=== PATIENT | male | born 1945 | race Two or more races ===

== ENCOUNTER 2017-11-29 07:13 | Day surgery (SDC) | payer OTHER ==
[~2017-11-29] VITALS: Ht 172.7 cm; Wt 91.0 kg
[~2017-11-29 07:13] MED LIST: LISI5TAB7 PO; METO-99 PO
[2017-11-29] MEDS ORDERED: LACTATED RINGERS 1,000 ML IV SCH (07:27)
[2017-11-29] MEDS ORDERED: PROPOFOL 10 MG/ML, 50ML ONE (11:18)
== END 2017-11-29 11:30 | disposition home or self-care (01) ==
LOC: OUT 07:13
PROVIDERS: ATTEND Surgery
DX: C18.7 Malignant neoplasm of sigmoid colon (principal); K62.1 Rectal polyp; I10 Essential (primary) hypertension; Z85.46 Personal history of malignant neoplasm of prostate; Z72.89 Other problems related to lifestyle; Z87.891 Personal history of nicotine dependence; Z98.890 Other specified postprocedural states
CPT/HCPCS: 45380; 45385; 88305; A4648; J2704; J7120

== ENCOUNTER → 2017-12-06 | Outpatient (CLI) | payer OTHER ==
[~2017-12-06] MED LIST changes: +OMNIPAQUE 350 MG/ML, 100ML BOTTLE ONE
== END | disposition home or self-care (01) ==
LOC: RAD 08:54
PROVIDERS: ATTEND Surgery
DX: C79.51 Secondary malignant neoplasm of bone (principal); E27.8 Other specified disorders of adrenal gland; K62.5 Hemorrhage of anus and rectum; Z85.46 Personal history of malignant neoplasm of prostate
CPT/HCPCS: 74177; Q9967

== ENCOUNTER → 2017-12-16 | Outpatient (CLI) | payer OTHER ==
[~2017-12-16] MED LIST changes: +HYDR-3237 PO; +LEUP7.5S IM; +METO-95 PO; -OMNIPAQUE 350 MG/ML, 100ML BOTTLE ONE; +OXYC-302 PO
== END | disposition home or self-care (01) ==
LOC: WOUND 10:51
PROVIDERS: ATTEND Internal Medicine
DX: Z93.3 Colostomy status (principal); I10 Essential (primary) hypertension; Z85.038 Personal history of other malignant neoplasm of large intestine; Z85.46 Personal history of malignant neoplasm of prostate; Z85.830 Personal history of malignant neoplasm of bone; Z87.891 Personal history of nicotine dependence; Z85.048 Personal history of other malignant neoplasm of rectum, rectosigmoid junction, and anus
CPT/HCPCS: 99214

== ENCOUNTER 2017-12-18 07:12 | Inpatient (IN) | payer OTHER ==
[2017-12-16 14:02] LABS: BASOPHILS # (AUTO) 0.03 x10^3/uL (0-0.1); BASOPHILS % (AUTO) 0 % (0-1); EOSINOPHILS # (AUTO) 0.14 x10^3/uL (0-0.4); EOSINOPHILS % (AUTO) 2 % (1-7); LYMPHOCYTES # (AUTO) 1.32 x10^3/uL (1-3.4); LYMPHOCYTES % (AUTO) 15 % (22-44); MD NO; MEAN CORPUSCULAR HEMOGLOBIN 28.5 pg (27.5-34.5); MEAN CORPUSCULAR HGB CONC 33.3 g/dL (33.2-36.2); MEAN CORPUSCULAR VOLUME 85.7 fL (81-97); MEAN PLATELET VOLUME 7.6 fL (7.4-10.4); MONOCYTES # (AUTO) 0.68 x10^3/uL (0.2-0.8); MONOCYTES % (AUTO) 8 % (2-9); NEUTROPHILS # (AUTO) 6.65 x10^3/uL (1.8-6.8); NEUTROPHILS % (AUTO) 75 % (42-75); PLATELET COUNT 402 x10^3/uL (130-400); RED BLOOD COUNT 4.54 x10^6/uL (4.38-5.82); RED CELL DISTRIBUTION WIDTH 14.1 % (9.4-14.8)
[2017-12-16 14:13] LABS: ALANINE AMINOTRANSFERASE 46 U/L (12-78); ALBUMIN 3.1 g/dL (3.4-5.0); ANION GAP 8 mmol/L (5-15); CALCIUM 9.5 mg/dL (8.5-10.1); CHLORIDE 101 mmol/L (98-107); CREATININE 1.36 mg/dL (0.7-1.3)
[2017-12-16 14:15] LABS: ALKALINE PHOSPHATASE 198 U/L (45-117); BILIRUBIN,TOTAL 0.5 mg/dL (0.2-1.0); TOTAL PROTEIN 7.7 g/dL (6.4-8.2)
[~2017-12-18] VITALS: Ht 172.7 cm; Wt 93.3 kg
[~2017-12-18 07:12] MED LIST changes: +CEFOTETAN PMX 2GM/50ML 50 ML ONE; +FENTANYL PF 250 MCG/5ML ONE; +GLYCOPYRROLATE 0.4 MG/2 ML, 2ML ONE; +MIDAZOLAM 1 MG/ML, 2ML ONE; +NEOSTIGMINE 1 MG/ML, 10ML ONE; -OXYC-302 PO; +PROPOFOL 10 MG/ML, 20ML ONE; +ROCURONIUM 10MG/ML,5ML ONE; +ROPIvacaine/PF 0.5%, 30 ML ONE
[2017-12-18] MEDS ORDERED: LACTATED RINGERS 1,000 ML IV SCH (07:34)
[2017-12-18] MEDS ORDERED: LIDOCAINE-MPF 1%, 5ML ONE (07:37)
[2017-12-18] MEDS ORDERED: BUPIVACAINE/PF 0.5% ONE (07:53)
[2017-12-18] MEDS ORDERED: INDOCYANINE GREEN 25 MG VIAL ONE (07:53)
[2017-12-18] MEDS ORDERED: LIDOCAINE-MPF 1%, 2ML INFIL ONE (08:00)
[2017-12-18] MEDS ORDERED: OXYcodone 5 MG/5 ML ORAL.SOL UDC PO PRN (08:30)
[2017-12-18] MEDS ORDERED: LABETALOL 5MG/ML, 20ML IV PRN (08:30)
[2017-12-18] MEDS ORDERED: PROMETHAZINE 12.5 MG SUPP PR PRN (08:30)
[2017-12-18] MEDS ORDERED: ONDANSETRON ODT 8 MG PO PRN (08:30)
[2017-12-18] MEDS ORDERED: ONDANSETRON 2MG/ML, 2ML IV PRN ×2 (08:30→14:00)
[2017-12-18] MEDS ORDERED: PROMETHAZINE 25 MG SUPP PR PRN (08:30)
[2017-12-18] MEDS ORDERED: PROMETHAZINE 25 MG/ML, 1ML IV PRN (08:30)
[2017-12-18] MEDS ORDERED: FENTANYL PF 100 MCG/2ML IV PRN (08:30)
[2017-12-18] MEDS ORDERED: MORPHINE SULFATE 4 MG/ML, 1ML IVPush PRN (08:30)
[2017-12-18] MEDS ORDERED: GABAPENTIN 300 MG CAPSULE PO ONE (08:30)
[2017-12-18] MEDS ORDERED: hydrALAzine 20 MG/ML, 1ML IV PRN (08:30)
[2017-12-18] MEDS ORDERED: MEPERIDINE/PF 25MG/0.5ML IVPush PRN (08:30)
[2017-12-18] MEDS ORDERED: ACETAMINOPHEN 325 MG TABLET PO PRN (08:30)
[2017-12-18] MEDS ORDERED: ACETAMINOPHEN 500 MG TABLET PO ONE (08:30)
[2017-12-18] MEDS ORDERED: ROCURONIUM 10MG/ML,5ML ONE (09:17)
[2017-12-18] MEDS ORDERED: FENTANYL PF 250 MCG/5ML ONE (09:18)
[2017-12-18] MEDS ORDERED: HYDROmorphone 2 MG/ML, 1ML ONE (10:37)
[2017-12-18] MEDS ORDERED: OXYcodone 5 MG/5 ML ORAL.SOL UDC ONE (10:38)
[2017-12-18] MEDS: HYDROmorphone 1 MG/ML, 1ML IV PRN ×4 (10:41→11:20)
[2017-12-18] MEDS ORDERED: LORazepam 2 MG/ML, 1ML IVPush STA (11:07)
[2017-12-18] MEDS ORDERED: LORazepam 2 MG/ML, 1ML ONE (11:11)
[2017-12-18] MEDS: ACETAMINOPHEN 500 MG TABLET PO SCH ×2 (13:56→20:30)
[2017-12-18 14:00] VITALS: BP 153/71
[2017-12-18] MEDS ORDERED: LORazepam 1MG TABLET PO PRN (14:00)
[2017-12-18] MEDS ORDERED: CALCIUM CARBONATE 500 MG TAB.CHEW PO PRN (14:00)
[2017-12-18] MEDS ORDERED: LORazepam 2 MG/ML, 1ML IVPush PRN (14:00)
[2017-12-18] MEDS ORDERED: D5%-0.45NACL+KCL 20MEQ 1,000 ML IV SCH (14:00)
[2017-12-18] MEDS ORDERED: DIPHENHYDRAMINE 50 MG/ML, 1ML IVPush PRN (14:00)
[2017-12-18] MEDS ORDERED: HYDROmorphone 1 MG/ML, 1ML IVPush PRN (14:00)
[2017-12-18] MEDS ORDERED: DEXAMETHASONE 4 MG/ML, 1ML IVPush PRN (14:00)
[2017-12-18] MEDS ORDERED: SCOPOLAMINE PATCH, 1.5MG PATCH.TD72 TD PRN (14:00)
[2017-12-18] MEDS ORDERED: ACETAMINOPHEN 100 ML IVPB SCH (14:30)
[2017-12-18] MEDS: IBUPROFEN 800 MG TABLET PO SCH ×2 (16:35→20:31)
[2017-12-18 19:45] VITALS: BP 123/65
[2017-12-18 23:46] VITALS: BP 128/75
[2017-12-19] MEDS: ACETAMINOPHEN 500 MG TABLET PO SCH ×4 (01:42→20:28)
[2017-12-19 02:45] VITALS: BP 123/67
[2017-12-19 05:50] LABS: BASOPHILS # (AUTO) 0.02 x10^3/uL (0-0.1); BASOPHILS % (AUTO) 0 % (0-1); EOSINOPHILS # (AUTO) 0.27 x10^3/uL (0-0.4); EOSINOPHILS % (AUTO) 4 % (1-7); LYMPHOCYTES # (AUTO) 0.75 x10^3/uL (1-3.4); LYMPHOCYTES % (AUTO) 12 % (22-44); MD NO; MEAN CORPUSCULAR HEMOGLOBIN 28.2 pg (27.5-34.5); MEAN CORPUSCULAR HGB CONC 33.3 g/dL (33.2-36.2); MEAN CORPUSCULAR VOLUME 84.5 fL (81-97); MEAN PLATELET VOLUME 7.5 fL (7.4-10.4); MONOCYTES # (AUTO) 0.38 x10^3/uL (0.2-0.8); MONOCYTES % (AUTO) 6 % (2-9); NEUTROPHILS # (AUTO) 4.83 x10^3/uL (1.8-6.8); NEUTROPHILS % (AUTO) 77 % (42-75); PLATELET COUNT 303 x10^3/uL (130-400)
[2017-12-19 05:51] LABS: ANION GAP 5 mmol/L (5-15); CHLORIDE 102 mmol/L (98-107)
[2017-12-19 05:52] LABS: CREATININE 0.75 mg/dL (0.7-1.3)
[2017-12-19 06:52] VITALS: BP 148/83
[2017-12-19] MEDS: HEPARIN 5,000 UNITS/ML, 1ML SQ SCH ×3 (07:44→23:47)
[2017-12-19] MEDS: IBUPROFEN 800 MG TABLET PO SCH ×3 (09:12→20:28)
[2017-12-19 12:17] VITALS: BP 121/70
[2017-12-19 18:50] VITALS: BP 134/69
[2017-12-19] MEDS: OXYcodone IR 5MG TABLET PO PRN (23:47)
[2017-12-19] MEDS: DIPHENHYDRAMINE 25 MG CAPSULE PO PRN (23:47)
[2017-12-20] MEDS: ACETAMINOPHEN 500 MG TABLET PO SCH ×4 (02:00→17:05)
[2017-12-20 04:30] VITALS: BP 151/77
[2017-12-20] MEDS: OXYcodone IR 5MG TABLET PO PRN ×3 (04:31→21:09)
[2017-12-20 05:27] LABS: BASOPHILS # (AUTO) 0.03 x10^3/uL (0-0.1); BASOPHILS % (AUTO) 0 % (0-1); EOSINOPHILS # (AUTO) 0.25 x10^3/uL (0-0.4); EOSINOPHILS % (AUTO) 4 % (1-7); LYMPHOCYTES # (AUTO) 1.16 x10^3/uL (1-3.4); LYMPHOCYTES % (AUTO) 18 % (22-44); MD NO; MEAN CORPUSCULAR HEMOGLOBIN 27.8 pg (27.5-34.5); MEAN CORPUSCULAR HGB CONC 32.7 g/dL (33.2-36.2); MEAN CORPUSCULAR VOLUME 85.1 fL (81-97); MEAN PLATELET VOLUME 7.5 fL (7.4-10.4); MONOCYTES % (AUTO) 8 % (2-9); NEUTROPHILS # (AUTO) 4.55 x10^3/uL (1.8-6.8); NEUTROPHILS % (AUTO) 70 % (42-75); PLATELET COUNT 320 x10^3/uL (130-400); RED BLOOD COUNT 3.85 x10^6/uL (4.38-5.82); RED CELL DISTRIBUTION WIDTH 14.1 % (9.4-14.8)
[2017-12-20 05:32] LABS: ANION GAP 6 mmol/L (5-15); CHLORIDE 104 mmol/L (98-107)
[2017-12-20 05:38] LABS: CREATININE 0.72 mg/dL (0.7-1.3)
[2017-12-20 07:31] VITALS: BP 134/76
[2017-12-20] MEDS: IBUPROFEN 800 MG TABLET PO SCH ×3 (07:35→21:09)
[2017-12-20] MEDS: HEPARIN 5,000 UNITS/ML, 1ML SQ SCH ×2 (07:35→16:07)
[2017-12-20 14:50] VITALS: BP 129/76
[2017-12-20 19:32] VITALS: BP 119/62
[2017-12-20] MEDS: DIPHENHYDRAMINE 25 MG CAPSULE PO PRN (21:09)
[2017-12-21] MEDS: ACETAMINOPHEN 500 MG TABLET PO SCH ×3 (00:26→12:00)
[2017-12-21] MEDS: HEPARIN 5,000 UNITS/ML, 1ML SQ SCH ×2 (00:26→10:42)
[2017-12-21 00:29] VITALS: BP 124/65
[2017-12-21 05:39] LABS: ANION GAP 6 mmol/L (5-15); CHLORIDE 103 mmol/L (98-107)
[2017-12-21 05:40] LABS: CREATININE 0.75 mg/dL (0.7-1.3)
[2017-12-21 05:42] LABS: BASOPHILS # (AUTO) 0.04 x10^3/uL (0-0.1); BASOPHILS % (AUTO) 1 % (0-1); EOSINOPHILS # (AUTO) 0.28 x10^3/uL (0-0.4); EOSINOPHILS % (AUTO) 3 % (1-7); LYMPHOCYTES # (AUTO) 1.53 x10^3/uL (1-3.4); LYMPHOCYTES % (AUTO) 19 % (22-44); MD NO; MEAN CORPUSCULAR HEMOGLOBIN 28.5 pg (27.5-34.5); MEAN CORPUSCULAR HGB CONC 33.5 g/dL (33.2-36.2); MEAN PLATELET VOLUME 7.5 fL (7.4-10.4); MONOCYTES # (AUTO) 0.61 x10^3/uL (0.2-0.8); MONOCYTES % (AUTO) 7 % (2-9); NEUTROPHILS # (AUTO) 5.76 x10^3/uL (1.8-6.8); NEUTROPHILS % (AUTO) 70 % (42-75); PLATELET COUNT 345 x10^3/uL (130-400); RED BLOOD COUNT 3.96 x10^6/uL (4.38-5.82); RED CELL DISTRIBUTION WIDTH 13.6 % (9.4-14.8)
[2017-12-21 05:47] VITALS: BP 125/76
[2017-12-21] MEDS: OXYcodone IR 5MG TABLET PO PRN ×2 (05:48→11:02)
[2017-12-21] MEDS ORDERED: METOPROLOL SUCCINATE 100 MG TAB.ER.24H PO SCH (06:00)
[2017-12-21 07:16] VITALS: BP 116/67
[2017-12-21] MEDS ORDERED: OXYC-302 PO (07:53)
[2017-12-21] MEDS: IBUPROFEN 800 MG TABLET PO SCH (10:42)
[2017-12-21 13:05] VITALS: BP 143/69
== END 2017-12-21 15:00 | disposition home health service (06) | DRG 329 ==
LOC: ORIP 07:12 → 4NOR 12:34
PROVIDERS: ADMIT Surgery; ATTEND Surgery
PROC: 8E0W4CZ Robotic Assisted Procedure of Trunk Region, Percutaneous Endoscopic Approach (ICD-10-PCS; 2017-12-18)
PROC: 0DBP4ZX Excision of Rectum, Percutaneous Endoscopic Approach, Diagnostic (ICD-10-PCS; 2017-12-18)
PROC: 0DBN4ZX Excision of Sigmoid Colon, Percutaneous Endoscopic Approach, Diagnostic (ICD-10-PCS; 2017-12-18)
PROC: 0D1N4Z4 Bypass Sigmoid Colon to Cutaneous, Percutaneous Endoscopic Approach (ICD-10-PCS; principal; 2017-12-18 09:30)
DX: C18.9 Malignant neoplasm of colon, unspecified (principal); N17.0 Acute kidney failure with tubular necrosis; C19 Malignant neoplasm of rectosigmoid junction; I10 Essential (primary) hypertension; C61 Malignant neoplasm of prostate
CPT/HCPCS: 36415; 80048; 80053; 85025; 86850; 86900; 88309; J1170; J1644; J2250; J2704; J2710; J2795; J3010; J3490; J2060; J3480; J7120; Q0163; S0074

== ENCOUNTER 2018-02-22 10:52 | Inpatient (IN) | payer OTHER ==
[~2018-02-22] VITALS: Ht 172.7 cm; Wt 100.8 kg
[~2018-02-22 10:52] MED LIST changes: -CEFOTETAN PMX 2GM/50ML 50 ML ONE; -FENTANYL PF 250 MCG/5ML ONE; -GLYCOPYRROLATE 0.4 MG/2 ML, 2ML ONE; -MIDAZOLAM 1 MG/ML, 2ML ONE; -NEOSTIGMINE 1 MG/ML, 10ML ONE; +OXYC-302 PO; -PROPOFOL 10 MG/ML, 20ML ONE; -ROCURONIUM 10MG/ML,5ML ONE; -ROPIvacaine/PF 0.5%, 30 ML ONE
[2018-02-22] MEDS ORDERED: SODIUM CHLORIDE FLUSH 10ML SYR IVF ONE (11:00)
[2018-02-22] MEDS ORDERED: SODIUM CHLORIDE 0.9% 1,000ML IVBOLUS ONE ×3 (11:00→16:30)
[2018-02-22 11:21] LABS: MEAN CORPUSCULAR HEMOGLOBIN 27.2 pg (27.5-34.5); MEAN CORPUSCULAR HGB CONC 33.2 g/dL (33.2-36.2); MEAN CORPUSCULAR VOLUME 82.1 fL (81-97); MEAN PLATELET VOLUME 7.4 fL (7.4-10.4); PLATELET COUNT 474 x10^3/uL (130-400); RED BLOOD COUNT 4.35 x10^6/uL (4.38-5.82); RED CELL DISTRIBUTION WIDTH 15.5 % (9.4-14.8)
[2018-02-22 11:33] LABS: INTERNATIONAL NORMALIZED RATIO 1.23 (0.93-1.1); PROTHROMBIN TIME 12.6 Seconds (9.6-11.5)
[2018-02-22 11:34] LABS: ALANINE AMINOTRANSFERASE 23 U/L (12-78); ALBUMIN 2.1 g/dL (3.4-5.0); ANION GAP 14 mmol/L (5-15); CALCIUM 8.8 mg/dL (8.5-10.1); CHLORIDE 105 mmol/L (98-107); CREATININE 1.82 mg/dL (0.7-1.3)
[2018-02-22 11:35] LABS: MD YES
[2018-02-22 11:37] LABS: ALKALINE PHOSPHATASE 109 U/L (45-117); BILIRUBIN,TOTAL 1.2 mg/dL (0.2-1.0); TOTAL PROTEIN 5.4 g/dL (6.4-8.2)
[2018-02-22 11:50] LABS: <PLATELET ESTIMATE> INCREASED; ANISOCYTOSIS 1+; BAND#(MANUAL) 0.69 x10^3/uL; BANDS%(MANUAL) 30 % (0-7); LYMPHS% (MANUAL) 26 % (22-44); METAMYELOCYTES# (MANUAL) 0.02 x10^3/uL (0-0); METAMYELOCYTES% (MANUAL) 1 % (0-1); MONOS#(MANUAL) 0.18 x10^3/uL (0.3-2.7); MONOS% (MANUAL) 8 % (2-9); SEG#(MANUAL) 0.81 x10^3/uL (1.8-6.8); SEGS% (MANUAL) 35 % (42-75)
[2018-02-22 11:51] LABS: <PLT MORPHOLOGY> NORMAL PLT MORPH
[2018-02-22] MEDS ORDERED: METRONIDAZOLE PMX 500MG/100ML 100 ML IVPB ONE (12:30)
[2018-02-22] MEDS ORDERED: CIPROFLOXACIN/PMX 400MG/200ML 100 ML IVPB ONE (12:30)
[2018-02-22] MEDS ORDERED: CIPROFLOXACIN/PMX 400MG/200ML 200 ML ONE (12:32)
[2018-02-22] MEDS ORDERED: PRED5TAB PO (12:54)
[2018-02-22] MEDS ORDERED: ABIR250T PO (12:55)
[2018-02-22] MEDS ORDERED: NOREPINEPHRINE 4 MG in SODIUM CHLORIDE 0.9% 246 ML IV PRN ×2 (13:30→15:30)
[2018-02-22] MEDS ORDERED: METRONIDAZOLE PMX 500MG/100ML 100 ML ONE (13:37)
[2018-02-22] MEDS ORDERED: HYDROmorphone 1 MG/ML, 1ML IV PRN (14:00)
[2018-02-22] MEDS ORDERED: hydrALAzine 20 MG/ML, 1ML IV PRN (14:00)
[2018-02-22] MEDS ORDERED: PROMETHAZINE 25 MG/ML, 1ML IV PRN (14:00)
[2018-02-22] MEDS ORDERED: LABETALOL 5MG/ML, 20ML IV PRN (14:00)
[2018-02-22] MEDS ORDERED: OXYcodone 5 MG/5 ML ORAL.SOL UDC PO PRN (14:00)
[2018-02-22] MEDS ORDERED: HALOPERIDOL 5 MG/ML IV PRN (14:00)
[2018-02-22] MEDS ORDERED: PHENYLEPHRINE 10 MG/ML ONE (14:15)
[2018-02-22] MEDS ORDERED: PROPOFOL 10 MG/ML, 20ML ONE (14:16)
[2018-02-22] MEDS ORDERED: SUCCINYLCHOLINE 20 MG/ML, 10ML ONE (14:16)
[2018-02-22] MEDS ORDERED: CEFOTETAN PMX 2GM/50ML 50 ML ONE (14:16)
[2018-02-22] MEDS ORDERED: ROCURONIUM 10MG/ML,5ML ONE (14:16)
[2018-02-22] MEDS ORDERED: FENTANYL PF 250 MCG/5ML ONE (14:18)
[2018-02-22] MEDS ORDERED: FENTANYL PF 100 MCG/2ML ONE (14:29)
[2018-02-22] MEDS ORDERED: FENTANYL PF 100 MCG/2ML IVPush ONE (14:30)
[2018-02-22] MEDS ORDERED: HYDROCORTISONE 100 MG INJ. ONE (14:36)
[2018-02-22] MEDS ORDERED: CEFEPIME 2 GM in DEXTROSE 5% 100 ML IV ONE (15:00)
[2018-02-22] MEDS ORDERED: VANCOMYCIN PER PHARMACY MC PRN (15:30)
[2018-02-22] MEDS ORDERED: VASOPRESSIN 100 UNIT in SODIUM CHLORIDE 0.9% 495 ML IV PRN (15:30)
[2018-02-22] MEDS ORDERED: VANCOMYCIN 1,600 MG in SODIUM CHLORIDE 0.9% 250 ML IV ONE (16:00)
[2018-02-22] MEDS ORDERED: PHARMACOKINETIC MONITORING MC PRN (16:00)
[2018-02-22] MEDS ORDERED: INSULIN REGULAR 100 UNITS/ML, 3ML VIAL SQ-INSULIN SCH (16:00)
[2018-02-22] MEDS ORDERED: MIDAZOLAM 1 MG/ML, 2ML ONE (16:01)
[2018-02-22] MEDS ORDERED: POTASSIUM CHLORIDE 30 MEQ in SODIUM CHLORIDE 0.9% 100 ML IV ONE (16:30)
[2018-02-22] MEDS ORDERED: PHENYLEPHRINE 20 MG in SODIUM CHLORIDE 0.9% 248 ML IV PRN (16:30)
[2018-02-22] MEDS ORDERED: MAGNESIUM SULFATE PMX 2GM/50ML 50 ML IV PRN (16:30)
[2018-02-22] MEDS ORDERED: LIDOCAINE-MPF 1%, 2ML ENDO PRN (17:00)
[2018-02-22 17:08] LABS: ANION GAP 12 mmol/L (5-15); CALCIUM 7.7 mg/dL (8.5-10.1); CHLORIDE 111 mmol/L (98-107); CREATININE 1.73 mg/dL (0.7-1.3)
[2018-02-22] MEDS: MEROPENEM 1 GM in SODIUM CHLORIDE 0.9% 100 ML IV SCH (17:27)
[2018-02-22] MEDS: PROPOFOL 100 ML IV PRN (17:27)
[2018-02-22] MEDS: NOREPINEPHRINE 8 MG in SODIUM CHLORIDE 0.9% 242 ML IV PRN (17:28)
[2018-02-22] MEDS: KSCALE TO 4.0 IV SCH ×2 (18:10→22:30)
[2018-02-22] MEDS: SODIUM CHLORIDE 0.9% 1,000 ML IV SCH (18:19)
[2018-02-22] MEDS: FENTANYL PF 100 MCG/2ML IV PRN ×2 (19:46→22:23)
[2018-02-22] MEDS: PANTOPRAZOLE 40 MG IV IVPush SCH (19:46)
[2018-02-22 19:59] VITALS: BP 105/61
[2018-02-22] MEDS: INSULIN REGULAR 100 UNITS/ML, 3ML VIAL SQ-INSULIN SCH (22:00)
[2018-02-22] MEDS ORDERED: POTASSIUM CHLORIDE PMX 100 ML IV ONE (23:45)
[2018-02-23] MEDS: FENTANYL PF 100 MCG/2ML IVPush PRN ×5 (02:20→15:59)
[2018-02-23 02:57] LABS: CULTURE INDICATED? YES; MICROSCOPIC INDICATED
[2018-02-23] MEDS: SODIUM CHLORIDE 0.9% 1,000 ML IV SCH ×3 (03:22→21:04)
[2018-02-23] MEDS: MEROPENEM 1 GM in SODIUM CHLORIDE 0.9% 100 ML IV SCH ×3 (03:22→21:06)
[2018-02-23] MEDS: INSULIN REGULAR 100 UNITS/ML, 3ML VIAL SQ-INSULIN SCH ×4 (04:00→21:08)
[2018-02-23] MEDS: FENTANYL PF 100 MCG/2ML IV PRN ×3 (04:23→23:50)
[2018-02-23] MEDS: NOREPINEPHRINE 8 MG in SODIUM CHLORIDE 0.9% 242 ML IV PRN ×3 (04:24→21:18)
[2018-02-23] MEDS: KSCALE TO 4.0 IV SCH (04:30)
[2018-02-23 04:39] LABS: MEAN CORPUSCULAR HEMOGLOBIN 26.7 pg (27.5-34.5); MEAN CORPUSCULAR HGB CONC 32.3 g/dL (33.2-36.2); MEAN CORPUSCULAR VOLUME 82.5 fL (81-97); MEAN PLATELET VOLUME 7.5 fL (7.4-10.4); PLATELET COUNT 400 x10^3/uL (130-400); RED BLOOD COUNT 4.26 x10^6/uL (4.38-5.82); RED CELL DISTRIBUTION WIDTH 16.1 % (9.4-14.8)
[2018-02-23 04:45] LABS: ALBUMIN 1.5 g/dL (3.4-5.0); ANION GAP 12 mmol/L (5-15); CALCIUM 8.5 mg/dL (8.5-10.1); CHLORIDE 116 mmol/L (98-107)
[2018-02-23 04:49] LABS: ALANINE AMINOTRANSFERASE 22 U/L (12-78); ALKALINE PHOSPHATASE 86 U/L (45-117); BILIRUBIN,TOTAL 0.7 mg/dL (0.2-1.0); CREATININE 1.46 mg/dL (0.7-1.3); TOTAL PROTEIN 4.8 g/dL (6.4-8.2)
[2018-02-23] MEDS: PROPOFOL 100 ML IV PRN ×3 (05:01→21:20)
[2018-02-23 05:05] LABS: MD YES
[2018-02-23 05:09] LABS: BANDS%(MANUAL) 62 % (0-7); LYMPH#(MANUAL) 0.37 x10^3/uL (1-3.4); LYMPHS% (MANUAL) 4 % (22-44); METAMYELOCYTES# (MANUAL) 0.18 x10^3/uL (0-0); METAMYELOCYTES% (MANUAL) 2 % (0-1); MONOS#(MANUAL) 0.37 x10^3/uL (0.3-2.7); MONOS% (MANUAL) 4 % (2-9); SEG#(MANUAL) 2.58 x10^3/uL (1.8-6.8); SEGS% (MANUAL) 28 % (42-75)
[2018-02-23 05:10] LABS: <PLATELET ESTIMATE> INCREASED; <PLT MORPHOLOGY> NORMAL PLT MORPH; ANISOCYTOSIS 1+
[2018-02-23] MEDS ORDERED: MAGNESIUM SULFATE PMX 2GM/50ML 50 ML IV ONE ×2 (06:00→07:00)
[2018-02-23] MEDS: PANTOPRAZOLE 40 MG IV IVPush SCH ×2 (07:50→21:04)
[2018-02-23] MEDS ORDERED: ALBUTEROL/IPRATROPIUM 2.5MG/0.5MG, 3 ML ONE (10:09)
[2018-02-23] MEDS ORDERED: ALBUTEROL/IPRATROPIUM 2.5MG/0.5MG, 3 ML NPPB PRN (11:30)
[2018-02-23] MEDS ORDERED: VANCOMYCIN 1,800 MG in SODIUM CHLORIDE 0.9% 250 ML IV ONE (12:00)
[2018-02-23] MEDS ORDERED: LIDOCAINE-MPF 1%, 5ML ONE (12:46)
[2018-02-24] MEDS: MEROPENEM 1 GM in SODIUM CHLORIDE 0.9% 100 ML IV SCH ×3 (02:02→19:56)
[2018-02-24] MEDS: INSULIN REGULAR 100 UNITS/ML, 3ML VIAL SQ-INSULIN SCH ×4 (04:00→22:00)
[2018-02-24 04:27] LABS: MEAN CORPUSCULAR HEMOGLOBIN 26.9 pg (27.5-34.5); MEAN CORPUSCULAR HGB CONC 32.7 g/dL (33.2-36.2); MEAN CORPUSCULAR VOLUME 82.2 fL (81-97); MEAN PLATELET VOLUME 7.5 fL (7.4-10.4); PLATELET COUNT 321 x10^3/uL (130-400); RED BLOOD COUNT 3.48 x10^6/uL (4.38-5.82); RED CELL DISTRIBUTION WIDTH 16.1 % (9.4-14.8)
[2018-02-24 04:33] LABS: ALBUMIN 1.2 g/dL (3.4-5.0); ANION GAP 10 mmol/L (5-15); CALCIUM 8.6 mg/dL (8.5-10.1); CHLORIDE 119 mmol/L (98-107); CREATININE 0.95 mg/dL (0.7-1.3)
[2018-02-24 04:44] LABS: MD YES
[2018-02-24 04:56] LABS: <PLATELET ESTIMATE> ADEQUATE; <PLT MORPHOLOGY> NORMAL PLT MORPH; ANISOCYTOSIS 1+; BAND#(MANUAL) 3.26 x10^3/uL; BANDS%(MANUAL) 34 % (0-7); LYMPH#(MANUAL) 0.67 x10^3/uL (1-3.4); LYMPHS% (MANUAL) 7 % (22-44); METAMYELOCYTES# (MANUAL) 0.29 x10^3/uL (0-0); METAMYELOCYTES% (MANUAL) 3 % (0-1); NRBC % (MANUAL) 1 % (0-1); SEG#(MANUAL) 5.38 x10^3/uL (1.8-6.8); SEGS% (MANUAL) 56 % (42-75)
[2018-02-24] MEDS: PROPOFOL 100 ML IV PRN ×2 (06:28→15:33)
[2018-02-24] MEDS: SODIUM CHLORIDE 0.9% 1,000 ML IV SCH (06:29)
[2018-02-24] MEDS: SODIUM CHLORIDE 0.45% 1,000 ML IV SCH ×2 (07:55→17:34)
[2018-02-24] MEDS ORDERED: POTASSIUM CHLORIDE 10% 40 MEQ/30 ML UDC NG ONE (08:30)
[2018-02-24] MEDS: METHADONE INTENSOL 10 MG/ML ORAL CONC PO SCH ×2 (09:36→17:34)
[2018-02-24] MEDS: NOREPINEPHRINE 8 MG in SODIUM CHLORIDE 0.9% 242 ML IV PRN (13:34)
[2018-02-24] MEDS: PIPERACILLIN/TAZO/PMX 3.375GM 50 ML IV SCH ×2 (15:15→20:45)
[2018-02-25] MEDS: METHADONE INTENSOL 10 MG/ML ORAL CONC PO SCH ×4 (01:58→20:50)
[2018-02-25] MEDS: PIPERACILLIN/TAZO/PMX 3.375GM 50 ML IV SCH ×4 (02:02→20:15)
[2018-02-25] MEDS: PROPOFOL 100 ML IV PRN (03:49)
[2018-02-25] MEDS: MEROPENEM 1 GM in SODIUM CHLORIDE 0.9% 100 ML IV SCH (03:49)
[2018-02-25] MEDS: INSULIN REGULAR 100 UNITS/ML, 3ML VIAL SQ-INSULIN SCH (04:00)
[2018-02-25 04:22] LABS: MEAN CORPUSCULAR HEMOGLOBIN 27.1 pg (27.5-34.5); MEAN CORPUSCULAR HGB CONC 32.7 g/dL (33.2-36.2); MEAN CORPUSCULAR VOLUME 82.8 fL (81-97); MEAN PLATELET VOLUME 7.2 fL (7.4-10.4); PLATELET COUNT 259 x10^3/uL (130-400); RED BLOOD COUNT 3.16 x10^6/uL (4.38-5.82); RED CELL DISTRIBUTION WIDTH 16.7 % (9.4-14.8)
[2018-02-25 05:39] LABS: MD YES
[2018-02-25 05:41] LABS: BAND#(MANUAL) 0.24 x10^3/uL; BANDS%(MANUAL) 3 % (0-7); LYMPH#(MANUAL) 0.47 x10^3/uL (1-3.4); LYMPHS% (MANUAL) 6 % (22-44); METAMYELOCYTES# (MANUAL) 0.08 x10^3/uL (0-0); METAMYELOCYTES% (MANUAL) 1 % (0-1); SEG#(MANUAL) 7.11 x10^3/uL (1.8-6.8); SEGS% (MANUAL) 90 % (42-75)
[2018-02-25 05:43] LABS: <PLATELET ESTIMATE> ADEQUATE; <PLT MORPHOLOGY> NORMAL PLT MORPH; ANISOCYTOSIS 1+
[2018-02-25 08:02] LABS: ALANINE AMINOTRANSFERASE 17 U/L (12-78); ALBUMIN 1.2 g/dL (3.4-5.0); ANION GAP 10 mmol/L (5-15); CALCIUM 8.6 mg/dL (8.5-10.1); CHLORIDE 118 mmol/L (98-107); CREATININE 0.65 mg/dL (0.7-1.3)
[2018-02-25 08:04] LABS: ALKALINE PHOSPHATASE 126 U/L (45-117); BILIRUBIN,TOTAL 0.3 mg/dL (0.2-1.0); TOTAL PROTEIN 4.3 g/dL (6.4-8.2)
[2018-02-25] MEDS: SODIUM CHLORIDE 0.45% 1,000 ML IV SCH (08:57)
[2018-02-25] MEDS: ENOXAPARIN 40 MG/0.4 ML SQ SCH (08:57)
[2018-02-25] MEDS ORDERED: POTASSIUM CHLORIDE 10% 40 MEQ/30 ML UDC PO ONE (09:00)
[2018-02-25] MEDS ORDERED: SODIUM CHLORIDE 0.45%, 1,000ML IVBOLUS ONE (23:30)
[2018-02-26] MEDS: PIPERACILLIN/TAZO/PMX 3.375GM 50 ML IV SCH ×4 (02:14→20:16)
[2018-02-26] MEDS: SODIUM CHLORIDE 0.45% 1,000 ML IV SCH ×2 (02:15→16:33)
[2018-02-26] MEDS: METHADONE INTENSOL 10 MG/ML ORAL CONC PO SCH ×2 (03:52→08:22)
[2018-02-26 04:01] VITALS: BP 152/68
[2018-02-26] MEDS: ENOXAPARIN 40 MG/0.4 ML SQ SCH (08:22)
[2018-02-26 11:20] VITALS: BP 147/85
[2018-02-26 13:28] VITALS: BP 151/80
[2018-02-26 20:07] VITALS: BP 150/77
[2018-02-26] MEDS: OXYcodone IR 5MG TABLET PO PRN ×2 (21:11→22:40)
[2018-02-27 02:05] VITALS: BP 166/72
[2018-02-27] MEDS: PIPERACILLIN/TAZO/PMX 3.375GM 50 ML IV SCH ×4 (03:09→21:48)
[2018-02-27 05:50] LABS: ANION GAP 15 mmol/L (5-15); CALCIUM 8.8 mg/dL (8.5-10.1); CHLORIDE 112 mmol/L (98-107)
[2018-02-27 05:54] LABS: BASOPHILS # (AUTO) 0.08 x10^3/uL (0-0.1); BASOPHILS % (AUTO) 1 % (0-1); EOSINOPHILS # (AUTO) 0.04 x10^3/uL (0-0.4); EOSINOPHILS % (AUTO) 0 % (1-7); LYMPHOCYTES # (AUTO) 0.87 x10^3/uL (1-3.4); LYMPHOCYTES % (AUTO) 11 % (22-44); MD NO; MEAN CORPUSCULAR HEMOGLOBIN 27.3 pg (27.5-34.5); MEAN CORPUSCULAR HGB CONC 33.5 g/dL (33.2-36.2); MEAN CORPUSCULAR VOLUME 81.4 fL (81-97); MEAN PLATELET VOLUME 7.5 fL (7.4-10.4); MONOCYTES # (AUTO) 0.16 x10^3/uL (0.2-0.8); MONOCYTES % (AUTO) 2 % (2-9); NEUTROPHILS # (AUTO) 7.09 x10^3/uL (1.8-6.8); NEUTROPHILS % (AUTO) 86 % (42-75); PLATELET COUNT 294 x10^3/uL (130-400); RED BLOOD COUNT 3.77 x10^6/uL (4.38-5.82); RED CELL DISTRIBUTION WIDTH 15.8 % (9.4-14.8)
[2018-02-27 07:04] VITALS: BP 159/85
[2018-02-27] MEDS: ENOXAPARIN 40 MG/0.4 ML SQ SCH (09:00)
[2018-02-27] MEDS: OXYcodone IR 5MG TABLET PO PRN ×4 (09:03→23:53)
[2018-02-27] MEDS: DEXTROSE 5% 1,000 ML IV SCH (13:59)
[2018-02-27 14:00] VITALS: BP 148/83
[2018-02-27 16:16] LABS: ALBUMIN 1.4 g/dL (3.4-5.0); BILIRUBIN, DIRECT 0.3 mg/dL (0.1-0.2)
[2018-02-27 16:18] LABS: BILIRUBIN,INDIRECT 0.4 mg/dL (0.0-2.0); BILIRUBIN,TOTAL 0.7 mg/dL (0.2-1.0); TOTAL PROTEIN 5.2 g/dL (6.4-8.2)
[2018-02-27 19:07] VITALS: BP 138/72
[2018-02-28] VITALS (7 sets, daily range): BP systolic 120–168; BP diastolic 69–104
[2018-02-28] MEDS: PIPERACILLIN/TAZO/PMX 3.375GM 50 ML IV SCH ×4 (03:52→21:01)
[2018-02-28] MEDS: DEXTROSE 5% 1,000 ML IV SCH (05:34)
[2018-02-28 05:53] LABS: BASOPHILS # (AUTO) 0.12 x10^3/uL (0-0.1); BASOPHILS % (AUTO) 1 % (0-1); EOSINOPHILS # (AUTO) 0.13 x10^3/uL (0-0.4); EOSINOPHILS % (AUTO) 1 % (1-7); LYMPHOCYTES # (AUTO) 0.92 x10^3/uL (1-3.4); LYMPHOCYTES % (AUTO) 9 % (22-44); MD NO; MEAN CORPUSCULAR HEMOGLOBIN 27.3 pg (27.5-34.5); MEAN CORPUSCULAR HGB CONC 33.5 g/dL (33.2-36.2); MEAN CORPUSCULAR VOLUME 81.6 fL (81-97); MEAN PLATELET VOLUME 7.8 fL (7.4-10.4); MONOCYTES # (AUTO) 0.13 x10^3/uL (0.2-0.8); MONOCYTES % (AUTO) 1 % (2-9); NEUTROPHILS # (AUTO) 8.92 x10^3/uL (1.8-6.8); NEUTROPHILS % (AUTO) 87 % (42-75); PLATELET COUNT 333 x10^3/uL (130-400); RED BLOOD COUNT 4.03 x10^6/uL (4.38-5.82); RED CELL DISTRIBUTION WIDTH 16.7 % (9.4-14.8)
[2018-02-28 05:59] LABS: ALBUMIN 1.4 g/dL (3.4-5.0); ANION GAP 12 mmol/L (5-15); CALCIUM 8.8 mg/dL (8.5-10.1); CHLORIDE 110 mmol/L (98-107)
[2018-02-28 06:03] LABS: ALANINE AMINOTRANSFERASE 17 U/L (12-78); ALKALINE PHOSPHATASE 186 U/L (45-117); BILIRUBIN,TOTAL 0.9 mg/dL (0.2-1.0); CREATININE 0.54 mg/dL (0.7-1.3); TOTAL PROTEIN 5.2 g/dL (6.4-8.2)
[2018-02-28] MEDS: ENOXAPARIN 40 MG/0.4 ML SQ SCH (08:10)
[2018-02-28] MEDS: OXYcodone IR 5MG TABLET PO PRN ×2 (08:10→15:48)
[2018-02-28] MEDS: POTASSIUM CHLORIDE 40 MEQ in SODIUM CHLORIDE 0.9% 500 ML IV SCH ×2 (11:58→15:48)
[2018-02-28] MEDS ORDERED: MAGNESIUM SULFATE PMX 2GM/50ML 50 ML IV SCH (12:00)
[2018-02-28] MEDS ORDERED: ENALAPRILAT 1.25 MG/ML, 2ML IV PRN (14:00)
[2018-02-28] MEDS ORDERED: TPN PER PHARMACY MC PRN (16:00)
[2018-02-28] MEDS ORDERED: DEXTROSE 5% 1,000 ML IV SCH (16:30)
[2018-02-28] MEDS ORDERED: AMINO ACID 10% IV SCH (17:00)
[2018-02-28] MEDS ORDERED: DEXTROSE 70% IV SCH (17:00)
[2018-02-28] MEDS ORDERED: SMOF TPN IV SCH (17:00)
[2018-02-28] MEDS ORDERED: [UNRECOGNIZED DRUG - OTHER] IV SCH (17:00)
[2018-02-28] MEDS ORDERED: FAT EMUL IV SCH (17:00)
[2018-02-28] MEDS ORDERED: FILTER, DISP 1.2 MICRON FOR TPN/PVN IV PRN (17:00)
[2018-02-28] MEDS ORDERED: DEXTROSE 10% 500 ML IV PRN (17:00)
[2018-02-28] MEDS ORDERED: DEXTROSE 50%, 50ML SYRINGE IVPush PRN (17:00)
[2018-02-28] MEDS: ONDANSETRON 2MG/ML, 2ML IVPush PRN (20:50)
[2018-02-28] MEDS: INSULIN REGULAR LOW DOSE Q6H X 48HRS SQ-INSULIN SCH (23:58)
[2018-03-01 00:51] VITALS: BP 143/82
[2018-03-01] MEDS: OXYcodone IR 5MG TABLET PO PRN (00:54)
[2018-03-01] MEDS ORDERED: DIPHENHYDRAMINE 50 MG/ML, 1ML IVPush ONE (03:30)
[2018-03-01] MEDS: PIPERACILLIN/TAZO/PMX 3.375GM 50 ML IV SCH ×2 (03:32→09:12)
[2018-03-01 05:07] LABS: BASOPHILS # (AUTO) 0.31 x10^3/uL (0-0.1); BASOPHILS % (AUTO) 2 % (0-1); EOSINOPHILS # (AUTO) 0.08 x10^3/uL (0-0.4); EOSINOPHILS % (AUTO) 1 % (1-7); LYMPHOCYTES # (AUTO) 0.96 x10^3/uL (1-3.4); LYMPHOCYTES % (AUTO) 7 % (22-44); MD NO; MEAN CORPUSCULAR VOLUME 81.9 fL (81-97); MEAN PLATELET VOLUME 7.9 fL (7.4-10.4); MONOCYTES # (AUTO) 0.38 x10^3/uL (0.2-0.8); MONOCYTES % (AUTO) 3 % (2-9); NEUTROPHILS % (AUTO) 87 % (42-75); PLATELET COUNT 335 x10^3/uL (130-400); RED BLOOD COUNT 3.91 x10^6/uL (4.38-5.82); RED CELL DISTRIBUTION WIDTH 16.4 % (9.4-14.8)
[2018-03-01 05:10] LABS: ALBUMIN 1.4 g/dL (3.4-5.0); ANION GAP 9 mmol/L (5-15); CALCIUM 8.6 mg/dL (8.5-10.1); CHLORIDE 115 mmol/L (98-107)
[2018-03-01 05:23] LABS: ALANINE AMINOTRANSFERASE 14 U/L (12-78); ALKALINE PHOSPHATASE 162 U/L (45-117); BILIRUBIN,TOTAL 0.7 mg/dL (0.2-1.0); CREATININE 0.71 mg/dL (0.7-1.3); PREALBUMIN 6.2 mg/dL (20.0-40.0); TOTAL PROTEIN 5.1 g/dL (6.4-8.2); TRIGLYCERIDES 246 mg/dL (50-200)
[2018-03-01] MEDS: INSULIN REGULAR LOW DOSE Q6H X 48HRS SQ-INSULIN SCH ×2 (05:25→11:24)
[2018-03-01] MEDS ORDERED: ALBUTEROL SULFATE 2.5 MG/3 ML NPPB PRN (05:50)
[2018-03-01] MEDS ORDERED: ALBUTEROL SULFATE 2.5 MG/3 ML ONE (05:53)
[2018-03-01 07:58] VITALS: BP 158/96
[2018-03-01] MEDS: ENOXAPARIN 40 MG/0.4 ML SQ SCH (09:11)
[2018-03-01] MEDS ORDERED: POTASSIUM CHLORIDE 40 MEQ in SODIUM CHLORIDE 0.9% 500 ML IV ONE (13:00)
[2018-03-01] MEDS ORDERED: LORazepam INTENSOL 2 MG/ML SL PRN (14:00)
[2018-03-01] MEDS ORDERED: SCOPOLAMINE PATCH, 1.5MG PATCH.TD72 TD PRN (14:00)
[2018-03-01 14:08] VITALS: BP 174/95
[2018-03-01] MEDS ORDERED: DEXTROSE 70% IV SCH (17:00)
[2018-03-01] MEDS ORDERED: [UNRECOGNIZED DRUG - OTHER] IV SCH (17:00)
[2018-03-01] MEDS ORDERED: INSULIN REGULAR, HUMAN 100 UNITS/ML, 3ML MEDIUM DOSE SS SQ-INSULIN SCH (17:00)
[2018-03-01] MEDS ORDERED: FAT EMUL IV SCH (17:00)
[2018-03-01] MEDS ORDERED: AMINO ACID 10% IV SCH (17:00)
[2018-03-01] MEDS ORDERED: SMOF TPN IV SCH (17:00)
[2018-03-01] MEDS: DEXTROSE 5% 1,000 ML IV SCH ×2 (17:34→21:08)
[2018-03-01] MEDS: ONDANSETRON 2MG/ML, 2ML IVPush PRN (20:13)
[2018-03-01] MEDS: HYDROmorphone 2 MG/ML, 1ML IVPush PRN (21:20)
[2018-03-02] MEDS: HYDROmorphone 2 MG/ML, 1ML IVPush PRN ×3 (01:05→11:42)
[2018-03-02] MEDS: LORazepam 2 MG/ML, 1ML IVPush PRN ×4 (01:32→15:00)
[2018-03-02] MEDS: ONDANSETRON 2MG/ML, 2ML IVPush PRN ×2 (01:37→06:28)
[2018-03-02] MEDS: ENOXAPARIN 40 MG/0.4 ML SQ SCH (08:30)
[2018-03-02] MEDS ORDERED: HYDROmorphone 2 MG/ML, 1ML IVPush PRN (13:00)
[2018-03-02] MEDS: DEXTROSE 5% 1,000 ML IV SCH (13:13)
[2018-03-02] MEDS: ATROPINE 1% RIGHTEYE PRN (15:00)
[2018-03-03] MEDS: ATROPINE 1% RIGHTEYE PRN ×5 (01:53→22:59)
[2018-03-03] MEDS: DEXTROSE 5% 1,000 ML IV SCH ×2 (01:57→17:31)
[2018-03-03] MEDS: ENOXAPARIN 40 MG/0.4 ML SQ SCH (01:58)
[2018-03-03] MEDS ORDERED: INSULIN REGULAR, HUMAN 100 UNITS/ML, 3ML MEDIUM DOSE SS SQ-INSULIN SCH (05:00)
[2018-03-03] MEDS ORDERED: INSULIN REGULAR LOW DOSE QDAY SQ-INSULIN SCH (05:00)
[2018-03-03] MEDS: LORazepam 2 MG/ML, 1ML IVPush PRN (22:16)
[2018-03-04] MEDS: ATROPINE 1% RIGHTEYE PRN (01:04)
[2018-03-04] MEDS: LORazepam 2 MG/ML, 1ML IVPush PRN (01:04)
== END 2018-03-04 03:09 | disposition expired | DRG 853 ==
LOC: ED 11:15 → EDIP 15:12 → CCU 16:08 → 4NOR 02-26 11:16 → 3NW 03-01 16:59
PROVIDERS: ADMIT Hospitalist; ATTEND Hospitalist
PROC: 5A1945Z Respiratory Ventilation, 24-96 Consecutive Hours (ICD-10-PCS; 2018-02-22)
PROC: 0D9P00Z Drainage of Rectum with Drainage Device, Open Approach (ICD-10-PCS; principal; 2018-02-22 14:30)
PROC: 0T9B70Z Drainage of Bladder with Drainage Device, Via Natural or Artificial Opening (ICD-10-PCS; 2018-02-23)
PROC: 02HV33Z Insertion of Infusion Device into Superior Vena Cava, Percutaneous Approach (ICD-10-PCS; 2018-02-23)
PROC: B548ZZA Ultrasonography of Superior Vena Cava, Guidance (ICD-10-PCS; 2018-02-23)
PROC: 0BH17EZ Insertion of Endotracheal Airway into Trachea, Via Natural or Artificial Opening (ICD-10-PCS; 2018-02-25)
PROC: 0D9670Z Drainage of Stomach with Drainage Device, Via Natural or Artificial Opening (ICD-10-PCS; 2018-02-25)
DX: A41.9 Sepsis, unspecified organism (principal); K63.1 Perforation of intestine (nontraumatic); J96.00 Acute respiratory failure, unspecified whether with hypoxia or hypercapnia; R65.21 Severe sepsis with septic shock; E43 Unspecified severe protein-calorie malnutrition; G93.41 Metabolic encephalopathy; K65.1 Peritoneal abscess; N17.0 Acute kidney failure with tubular necrosis; T81.40XA Infection following a procedure, unspecified, initial encounter; C78.00 Secondary malignant neoplasm of unspecified lung; C78.7 Secondary malignant neoplasm of liver and intrahepatic bile duct; C79.51 Secondary malignant neoplasm of bone; E87.0 Hyperosmolality and hypernatremia; J98.11 Atelectasis; N39.0 Urinary tract infection, site not specified; Z99.11 Dependence on respirator [ventilator] status; K56.7 Ileus, unspecified; B95.2 Enterococcus as the cause of diseases classified elsewhere; B96.89 Other specified bacterial agents as the cause of diseases classified elsewhere; D64.9 Anemia, unspecified; E83.42 Hypomagnesemia; E87.6 Hypokalemia; I10 Essential (primary) hypertension; Y83.6 Removal of other organ (partial) (total) as the cause of abnormal reaction of the patient, or of later complication, without mention of misadventure at the time of the procedure; Z51.5 Encounter for palliative care; Z82.49 Family history of ischemic heart disease and other diseases of the circulatory system; Z85.048 Personal history of other malignant neoplasm of rectum, rectosigmoid junction, and anus; Z87.891 Personal history of nicotine dependence; Z92.3 Personal history of irradiation; Z93.3 Colostomy status; Z68.33 Body mass index [BMI] 33.0-33.9, adult; Z85.46 Personal history of malignant neoplasm of prostate; Y92.89 Other specified places as the place of occurrence of the external cause
CPT/HCPCS: 31500; 36415; 36556; 36569; 36600; 71045; 74018; 74176; 76937; 77001; 80048; 80053; 80076; 81001; 82040; 82330; 82803; 82947; 82962; 83605; 83690; 83735; 84100; 84132; 84134; 84145; 84295; 84478; 85014; 85018; 85025; 85610; 85730; 86850; 86900; 86923; 87040; 87070; 87075; 87076; 87077; 87081; 87086; 87181; 87186; 87205; 93005; 94002; 94003; 94640; 96361; 96365; 96375; 99292; G0378; J0610; J0744; J1170; J1650; J1815; J2185; J2250; J2405; J2543; J2704; J3010; J3370; J3480; J7060; J7070; J7613; J7620; C1751; C9113; J0330; J1200; J1720; J2060; J2270; J2370; J3420; J3475; J7030; J7040; J7050; S0028; S0074